=== PATIENT | female | born 1970 | race Caucasian/White ===

== ENCOUNTER 2020-03-27 10:05 | Emergency (ER) | payer BC, OTHER ==
[~2020-03-27] VITALS: Ht 160 cm; Wt 86.2 kg
[~2020-03-27 10:05] MED LIST: CIPROFLOXACIN500 M1 PO; LEVOTHYROXINE0.2 M1 PO; NORCO 5-325 TA1 EACH PO; PHENERGAN 25 MG25 M1 PO
[2020-03-27] MEDS ORDERED: LEVOXYL112 MCG PO (10:43)
[2020-03-27] MEDS ORDERED: LISINOPRIL-HCT1 EAC2 PO (10:44)
[2020-03-27] MEDS ORDERED: TRAZODONE HCL50 MG PO (10:44)
[2020-03-27] MEDS ORDERED: LIPITOR20 MG PO (10:45)
[2020-03-27 10:48] LABS: ABSOLUTE NEUTROPHILS 3.8 thou/uL (1.4-8.2); BASOPHILS 1.2 % (0.0-2.0); EOSINOPHILS 3.3 % (0.0-3.0); HEMATOCRIT 36.9 % (37.0-47.0); LYMPHOCYTES 26.4 % (24.0-44.0); MCH 32.5 pg (26.0-34.0); MCHC 35.1 g/dL (28.0-37.0); MCV 92.8 fL (80.0-100.0); MONOCYTES 9.8 % (1.0-8.0); PLATELET COUNT 262 thou/uL (150-400); POLYS 59.3 % (36.0-66.0); RBC 3.98 mil/uL (4.20-5.00); RDW 13.1 % (10.5-14.5); WBC 6.4 thou/uL (4.0-11.0)
[2020-03-27 11:07] LABS: ANION GAP 10 mmol/L (7-16); BUN 16 mg/dL (7-18); CALCIUM 9.1 mg/dL (8.5-10.1); CHLORIDE 101 mmol/L (98-107); CO2 28 mmol/L (21-32); CREATININE 1.2 mg/dL (0.6-1.0); GLUCOSE 97 mg/dL (74-106); SODIUM 139 mmol/L (136-145)
[2020-03-27 11:08] LABS: POTASSIUM 3.8 mmol/L (3.5-5.1)
[2020-03-27 11:17] LABS: ALBUMIN 3.5 g/dL (3.4-5.0); SGOT 79 U/L (15-37); SGPT 93 U/L (30-65); TOTAL BILIRUBIN 0.7 mg/dL (0.2-1.0); TOTAL PROTEIN 7.3 g/dL (6.4-8.2); TROPONIN-I <0.06 ng/mL (<0.06)
[2020-03-27 13:06] LABS: PLATELET ESTIMATE NORMAL
[2020-03-27 16:17] VITALS: BP 112/76
--- NOTE | 2020-03-28 16:03 | EKG ---
[facility] [place] [address] ELECTROCARDIOGRAM REPORT Name: [facility] Room [facility] [id number] Admission: 03/27/20 Attend Phys: Discharge: 03/27/20 Date of : 66 Report #: [id number] THIS REPORT FOR: cc: Carmen Membreno. Carmen Hoang. Demarco Mariee MD ~ THIS REPORT FOR: //name// [facility] ED Test Date: 2020-03-27 Test Time: 10:22:05 Pat Name: MU MEDINA Department: Room: Gender: F [employer] Person: ALVARO : 1970 Requested By: Viola Meier Order Number: [id number] MD: Demarco Maxwell Measurements Intervals [place] Rate: 62 P: 26 AK: 154 QRS: 6 QRSD: 98 T: 26 QT: 427 QTc: 434 Interpretive Statements Sinus rhythm Abnormal R-wave progression, early transition No previous ECG available for comparison Electronically Signed On 03-28-2020 16:02:52 CDT by Demarco Maxwell [email or web address] <ELECTRONICALLY SIGNED> By: Demarco Maxwell MD 03/28/20 1602 1022 1022 Demarco Maxewll MD /EPI
== END 2020-03-27 16:26 | disposition home or self-care (01) ==
LOC: ER 10:05
PROVIDERS: Student in an Organized Health Care Education/Training Program
DX: R06.02 Shortness of breath (principal); R07.89 Other chest pain; R42 Dizziness and giddiness; R11.0 Nausea; M79.89 Other specified soft tissue disorders; R63.5 Abnormal weight gain; I10 Essential (primary) hypertension; E89.0 Postprocedural hypothyroidism; Z79.899 Other long term (current) drug therapy; Z88.1 Allergy status to other antibiotic agents; Z88.5 Allergy status to narcotic agent; Z88.2 Allergy status to sulfonamides; Z90.5 Acquired absence of kidney

== ENCOUNTER → 2020-03-29 | Outpatient (CLI) | payer BC, OTHER ==
[~2020-03-29] MED LIST changes: +LEVOXYL112 MCG PO; +LIPITOR20 MG PO; +LISINOPRIL-HCT1 EAC2 PO; +TRAZODONE HCL50 MG PO
== END ==
LOC: SJCVCIMAG 09:52
PROVIDERS: ATTEND Internal Medicine
DX: R06.00 Dyspnea, unspecified (principal)